=== PATIENT | female | born 1995 | race Hispanic/Latino ===

== ENCOUNTER 2018-09-03 17:57 | Emergency (ER) | payer SELFPAY ==
[~2018-09-03] VITALS: Ht 165.1 cm; Wt 92.1 kg
--- OUTSIDE RECORDS SUMMARY | 2018-09-03 18:00 | XMS REPORT | Encounter Summary ---
Author Organization Unknown Address [address] [place] [address] Phone [phone] Reason for Visit Bilateral Medical Complaint Instructions 1. Influenza influenza (flu): care instructions Tamiflu 75 mg capsule rapid flu (A+B) 2. Pain in throat rapid strep group A, throat Discussion Note: None recorded. Plan of Care Patient Instructions otc tylenol and ibuprofen for fever and body aches. increase fluids. follow up pcp Reminders Provider Appointments None recorded. Lab Rapid Flu (A+B) 07/22/2016 [facility] Rapid Strep Group a, Throat 07/22/2016 [facility] Referral None recorded. Procedures None recorded. Surgeries None recorded. Imaging None recorded. Medications Name Start Date Tamiflu 75 mg capsule Take 1 capsule twice a day by oral route for 5 days. Medications Administered None recorded. Vitals Height Weight BMI Blood Pressure 5 ft 6 in 190 lbs 30.7 116/72 Lab Results Date Name Specimen Result Interpretation Description Value Range Status Address Rapid Strep Group a, Throat Result negative [facility]: [address] [place] [address] Swab Location Left and Right tonsillar pillars [facility]: [address] [place] [address] Rapid Flu (A+B) Influenza a positive [facility]: [address] [place] [address] Influenza B negative [facility]: [address] [place] [address] Allergies Code Code System Name Reaction Severity Onset NKDA Problems None recorded. Procedures Date Name Performed by Appendectomy Information not available Vaccine List None recorded. Social History Smoking Status Never Smoker Past Encounters 07/22/2016 Influenza; Pain in Throat [facility]: [address] [place] [address], Ph. History of Present Illness Qhheu-Oxlxghuppq-Nxagtks Reported By: Patient HPI: Location: head/sinuses, throat. Quality: sore throat, nasal/sinus congestion, dry cough. Duration: 1days. Severity: moderate. Onset/Timing: gradual. Context: no sick contacts, no foreign travel, non-smoker. Modifying factors: OTC medication. Associated Symptoms: no sputum production, no shortness of breath, no wheezing, no change in number of pillows needed to sleep at night, no sweats, no significant weight gain, no significant weight loss, no morning cough, no vomiting, no diarrhea, no rash, no nausea, no fever, no headache, fatigue, sore throat, fever, muscle aches Review of Systems:ROS as noted in the HPI Review of Systems Basic Reported By: Patient Physical Exam Adult Basic, Adult Female Complete, 14-21 Yr Females Reported By: Patient Constitutional: General Appearance: healthy-appearing, well-nourished, well-developed. Level of Distress: NAD. Ambulation: ambulating normally Psychiatric: Mental Status: active and alert Eyes: Lids and Conjunctivae: non-injected, no discharge Ryv-Lqxt-Xzwky-Throat: Ears: no lesions on external ear, no outer ear tenderness, EACs clear, TMs clear, TM mobility normal. Hearing: no hearing loss. Nose: no lesions on external nose, nares patent, no septal deviation, nasal passages clear, no sinus tenderness, nasal discharge--rhinorrhea, post nasal drip. Lips, Teeth, and Gums: no mouth or lip ulcers. Oropharynx: moist mucous membranes, no erythema, no exudates, tonsils not enlarged Neck: Neck: trachea midline. Lymph Nodes: no cervical LAD Lungs: Respiratory effort: no dyspnea, no tachypnea, no use of accessory muscles, no intercostal retractions. Auscultation: breath sounds normal, clear to auscultation, no wheezing, no rales/crackles, no rhonchi, no retractions Cardiovascular: Heart Auscultation: RRR, no murmurs, no gallops, no rub
--- OUTSIDE RECORDS SUMMARY | 2018-09-03 18:01 | XMS REPORT | Encounter Summary ---
Author Organization Unknown Address [address] [place] [address] Phone [phone] Reason for Visit Bilateral Medical Complaint Instructions 1. Influenza influenza (flu): care instructions Tamiflu 75 mg capsule rapid flu (A+B) 2. Pain in throat rapid strep group A, throat 3. Dysfunction of eustachian tube Discussion Note: None recorded. Plan of Care [...] Group a, Throat Result negative [facility]: [address] [place] [address] Swab Location Left and Right tonsillar pillars [facility]: [address] [place] [address] Rapid Flu (A+B) Influenza a positive [facility]: [address] [place] [address] Influenza B negative [facility]: [address] [place] [address] Allergies Code Code System Name Reaction Severity Onset NKDA Problems None recorded. Procedures Date Name Performed by Appendectomy Information not available Vaccine List None recorded. Social History Smoking Status Never Smoker Past Encounters 07/22/2016 Influenza; Pain in Throat; Dysfunction of Eustachian Tube [facility]: [address] [place] [address], Ph. History of Present Illness Kivpc-Tinwkbdeqb-Pwznggz Reported By: Patient HPI: Location: head/sinuses, throat. [...] Eyes: Lids and Conjunctivae: non-injected, no discharge Adw-Xvct-Acjxw-Throat: Ears: no lesions on external ear, no [...]
--- OUTSIDE RECORDS SUMMARY | 2018-09-03 18:01 | XMS REPORT ---
Author Author [facility] Address Unknown Phone Unavailable Care Team Providers Care Catering Attendant Name Role Phone Unavailable Unavailable Payers Payer Name Policy Type Policy Number Effective Date Expiration Date Problems This patient has no known problems. Allergies, Adverse Reactions, Alerts Allergy Name Allergy Type Status Severity Reaction(s) Onset Date Inactive Date Treating Clinician Comments No Known Allergies DA Active U 2017-08-28 00:00:00 Medications This patient has no known medications. Encounters Start Date/Time End Date/Time Encounter Type Admission Type Attending Clinicians Care Facility Care Department Encounter ID 2017-02-11 15:27:43 2017-02-11 15:27:43 Emergency [facility] [id number] 2017-02-11 13:01:11 2017-02-11 13:01:11 Emergency [facility] [id number]
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
== END 2018-09-03 19:07 | disposition left against medical advice (07) ==
LOC: ER 17:57
DX: Z53.21 Procedure and treatment not carried out due to patient leaving prior to being seen by health care provider (principal); M54.5 Low back pain